=== PATIENT | female | born 1995 | race Caucasian/White ===

== ENCOUNTER 2017-10-30 16:10 | Emergency (ER) | payer BC ==
--- NOTE | 2017-10-30 16:18 | PDOC ---
Rapid Medical Evaluation Chief Complaint: Vaginal Sxs Time Seen by Provider: 10/30/17 16:15 Medical Evaluation: Allergies Allergy/AdvReac Type Severity Reaction Status Date / Time strawberry Allergy Hives Verified 02/27/16 21:10 10/30/17 16:16 ealthy 22 year old female with burning vaginal pain, rash, and vaginal discharge for several days. Noted a blister on vagina. -Pgu -UA/culture -Urine GC -Declines HIV test -To FT for further evaluation
[2017-10-30 16:19] VITALS: BP 122/68; PULSE 93; TEMP 97.9; BMI 21.8
[2017-10-30 16:45] LABS: URINE APPEARANCE SLCLOUDY; URINE BILIRUBIN NEGATIVE (NEGATIVE); URINE BLOOD 1+ (NEGATIVE); URINE COLOR YELLOW; URINE GLUCOSE (UA) NEGATIVE (NEGATIVE); URINE KETONE TRACE (NEGATIVE); URINE LEUK ESTERASE TRACE (NEGATIVE); URINE NITRITE POSITIVE (NEGATIVE); URINE PROTEIN NEGATIVE (NEGATIVE); URINE UROBILINOGEN 4.0 E.U/dl mg/dL (0.2-1.0)
[2017-10-30 16:47] LABS: HCG,QUALITATIVE URINE NEGATIVE
[2017-10-30] MEDS ORDERED: AZITHROMYCIN 1 GM PACKET PO ONE (17:25)
--- NOTE | 2017-10-30 17:29 | PDOC ---
History of Present Illness - General Chief Complaint: Vaginal Sxs Stated Complaint: BURNING SENSATION Time Seen by Provider: 10/30/17 16:15 History Source: Patient Exam Limitations: No Limitations - History of Present Illness Travel History: No Initial Comments: 10/30/17 17:21 22 yr female with c/o vaginal discharge and pain, burning to the vaginal area for 4 days. Pt is sexually active 2 partners the past 30 days. Timing/Duration: reports: constant Pain Radiation: reports: no radiation Past History - Past Medical History Allergies/Adverse Reactions: Allergies Allergy/AdvReac Type Severity Reaction Status Date / Time strawberry Allergy Hives Verified 10/30/17 16:19 Home Medications: Ambulatory Orders No Home Medications 0 dose .ROUTE UTDICT 03/07/14 Acyclovir [Zovirax -] 400 mg PO TID #30 tablet 10/30/17 Cephalexin [Keflex] 500 mg PO BID #6 capsule 10/30/17 metroNIDAZOLE [Flagyl -] 500 mg PO BID #14 tablet 10/30/17 Anemia: No Asthma: No Cancer: No Cardiac Disorders: No CVA: No COPD: No CHF: No Dementia: No Diabetes: No GI Disorders: No Disorders: No HTN: No Hypercholesterolemia: No Liver Disease: No Seizures: No Thyroid Disease: No Other medical history: denies - Surgical History Abdominal Surgery: Yes (hernia repair, LEAP SX) Appendectomy: No Cardiac Surgery: No Cholecystectomy: No Lung Surgery: No Neurologic Surgery: No Orthopedic Surgery: No - Immunization History Immunization Up to Date: No (no flu vaccine) - Suicide/Smoking/Psychosocial Hx Smoking Status: No Smoking History: Never smoked Have you smoked in the past 12 months: No Number of Cigarettes Smoked Daily: 3 Information on smoking cessation initiated: No Hx Alcohol Use: No Drug/Substance Use Hx: No Substance Use Type: None Hx Substance Use Treatment: No *Physical Exam - Vital Signs Last Vital Signs Temp Pulse Resp BP Pulse Ox 97.9 F 93 H 18 122/68 100 10/30/17 16:16 10/30/17 16:16 10/30/17 16:16 10/30/17 16:16 10/30/17 16:16 - Physical Exam General Appearance: Yes: Nourished, Appropriately Dressed HEENT: positive: EOMI, CATHERINE Respiratory/Chest: positive: Lungs Clear, Normal Breath Sounds Female Pelvic Exam: positive: normal adnexa, discharge (yellow/green ), other ( multiple lesions to the external vulva area, vesicular, reddened) Gastrointestinal/Abdominal: positive: Normal Bowel Sounds, Soft Musculoskeletal: positive: Normal Inspection Extremity: positive: Normal Capillary Refill, Normal Inspection, Normal Range of Motion ED Treatment Course - ADDITIONAL ORDERS Additional order review: Laboratory Results 10/30/17 16:30 Urine Color Yellow Urine Appearance Slcloudy Urine pH 6.0 Ur Specific [place] 1.014 Urine Protein Negative Urine Glucose (UA) Negative Urine Ketones Trace H Urine Blood 1+ H Urine Nitrite Positive Urine Bilirubin Negative Urine Urobilinogen 4.0 e.u/dl H Ur Leukocyte Esterase Trace Urine HCG, Qual Negative Medical Decision Making - Medical Decision Making 10/30/17 17:31 cc: vaginal discharge burning pain to the outside of vagina for 4 days exam consistent with herpes genitalia, vaginal discharge will send cultures will cover for STD herpes, will check HIV and RPR discussed in detail with the investigation division captain all questions asked and answered. 10/30/17 19:17 dc inst discussed in detail with the pt all questions asked and answered *DC/Admit/Observation/Transfer Diagnosis at time of Disposition: Genital herpes Qualifiers: Herpes simplex infection site: vulvovaginitis Qualified Code(s): A60.04 - Herpesviral vulvovaginitis Urinary tract infection Qualifiers: Urinary tract infection type: acute cystitis Hematuria presence: with hematuria Qualified Code(s): N30.01 - Acute cystitis with hematuria - Discharge Dispostion Disposition: HOME Condition at time of disposition: Good - Prescriptions Prescriptions: Acyclovir [Zovirax -] 400 mg PO TID #30 tablet Cephalexin [Keflex] 500 mg PO BID #6 capsule metroNIDAZOLE [Flagyl -] 500 mg PO BID #14 tablet - Referrals Referrals: Stiven Brar MD [Staff Physician] - - Patient Instructions Printed Discharge Instructions: The Facts About Genital Herpes, Genital Herpes Additional Instructions: take the medication as prescribed the Acyclovir is for the herpes outbreak the Keflex id for urine infection the Metro is for the bacterial vaginal infection coverage please have no sexual contact until your symptoms have improved always use condoms tell your partner he needs to be tested and treated follow with the polygraph examiner listed below in one week Return to ER for any worsening symptoms - Post Discharge Activity
[2017-10-30 17:48] LABS: EPI CELLS RARE /HPF (FEW); URINE BACTERIA MANY /hpf (NONE SEEN); URINE HYALINE CAST 2 /lpf; URINE MUCUS MODERATE
[2017-10-30] MEDS ORDERED: AZITHROMYCIN 500 MG TABLET ONE (17:48)
[2017-10-30] MEDS ORDERED: ONDANSETRON *ODT* 4 MG TABLET ONE (18:44)
[2017-10-30] MEDS ORDERED: ONDANSETRON *ODT* 4 MG TABLET SL ONE (19:19)
== END 2017-10-30 19:21 | disposition home or self-care (01) ==
LOC: JERFT 16:10
DX: N30.01 Acute cystitis with hematuria (principal); A60.04 Herpesviral vulvovaginitis
CPT/HCPCS: 36415; 81003; 81015; 84703; 86593; 87070; 87086; 87186; 87205; 87255; 87389; 87491; 87591; 99281-25; Q0162

== ENCOUNTER 2018-05-05 16:46 | Emergency (ER) | payer BC ==
--- NOTE | 2018-05-05 16:56 | PDOC ---
Rapid Medical Evaluation Chief Complaint: Pain Time Seen by Provider: 05/05/18 16:53 Medical Evaluation: Allergies Allergy/AdvReac Type Severity Reaction Status Date / Time strawberry Allergy Hives Verified 10/30/17 16:19 05/05/18 16:54 I have performed a brief in person evaluation of this patient. The patient presents with a CC of: Abd pain HPI: Pt is a 23 Yo female who has had abd pain x 1 week. Pt has one episode of vomiting. Pt has hx of constipation. Hx of hernia repair. LMP was last week. PE: Skin: Clear Heart: RRR Lungs: Clear Abd: patient has RLQ pain, no rebound tenderness. MS: Moves all extremities without difficulty Neuro: Appropriate affect Psych: appropriate affect I have ordered: Abd pain protocol The patient will proceed to the ED for further evaluation.
[2018-05-05 16:59] VITALS: BMI 22.2
[2018-05-05 17:33] LABS: BASO % 0.5 % (0-2.0); EOS % 1.6 % (0-4.5); HEMATOCRIT 37.6 % (32.4-45.2); HEMOGLOBIN 12.5 GM/dL (10.7-15.3); MCHC 33.2 g/dl (32.0-36.0); MEAN CELL VOLUME 93.3 fl (80-96); MEAN PLT VOLUME 8.3 fl (7.5-11.1); MONO % 7.2 % (3.8-10.2); NEUT % 65.7 % (42.8-82.8); PLATELET COUNT 250 K/MM3 (134-434); RBC 4.03 M/mm3 (3.60-5.2)
[2018-05-05 18:06] LABS: HCG,QUALITATIVE URINE Negative; URINE APPEARANCE CLEAR; URINE BILIRUBIN NEGATIVE (<2.0 mg/dL); URINE COLOR LTYELLOW; URINE GLUCOSE (UA) NEGATIVE (NEGATIVE); URINE KETONE NEGATIVE (NEGATIVE); URINE LEUK ESTERASE TRACE (NEGATIVE); URINE NITRITE NEGATIVE (NEGATIVE); URINE PROTEIN NEGATIVE (NEGATIVE); URINE UROBILINOGEN NEGATIVE mg/dL (0.2-1.0)
[2018-05-05 18:08] LABS: ALBUMIN 3.8 g/dl (3.4-5.0); ANION GAP 6 MMOL/L (8-16); BILIRUBIN,TOTAL 0.3 mg/dL (0.2-1); BLOOD UREA NITROGEN 11 mg/dL (7-18); CALCIUM 9.2 mg/dL (8.5-10.1); CHLORIDE 104 mmol/L (98-107); CO2 26 mmol/L (21-32); CREATININE 0.9 mg/dL (0.55-1.3); GLUCOSE,RANDOM 93 mg/dL (74-106); LIPASE 162 U/L (73-393); POTASSIUM 4.3 mmol/L (3.5-5.1); SGOT/AST 31 U/L (15-37); SGPT/ALT 39 U/L (13-61); SODIUM 136 mmol/L (136-145); TOT PROT 7.7 g/dl (6.4-8.2)
[2018-05-05 18:10] LABS: ALK PHOS 67 U/L (45-117)
--- NOTE | 2018-05-05 18:18 | PDOC ---
History of Present Illness - General Chief Complaint: Pain Stated Complaint: ABD PAIN Time Seen by Provider: 05/05/18 16:53 History Source: Patient Exam Limitations: No Limitations - History of Present Illness Initial Comments: 05/05/18 18:07 Patient is a 23F with history of constipation, ovarian cyst, r inguinal hernia here today complaining of one week of RLQ abdominal pain. Patient reports anorexia and one episode of vomiting. Denies fevers, chills. Denies dysuria. LMP one week ago. Endorses odorous vaginal discharge. Currently monogamous with boyfriend, not using protection. Has history of herpes. Patient has OBGYN at [facility], Dr Vanegas. Denies blood in vomit. Past History - Past Medical History Allergies/Adverse Reactions: Allergies Allergy/AdvReac Type Severity Reaction Status Date / Time strawberry Allergy Hives Verified 05/05/18 16:54 Home Medications: Ambulatory Orders Doxycycline Hyclate 100 mg PO BID #28 tablet 05/05/18 Valacyclovir HCl [Valtrex -] 500 mg PO DAILY 05/05/18 Anemia: No Asthma: No Cancer: No Cardiac Disorders: No CVA: No COPD: No CHF: No Dementia: No Diabetes: No GI Disorders: No Disorders: No HTN: No Hypercholesterolemia: No Liver Disease: No Seizures: No Thyroid Disease: No - Surgical History Abdominal Surgery: Yes (hernia repair, LEAP SX) Appendectomy: No Cardiac Surgery: No Cholecystectomy: No Lung Surgery: No Neurologic Surgery: No Orthopedic Surgery: No - Immunization History Immunization Up to Date: No (no flu vaccine) - Suicide/Smoking/Psychosocial Hx Smoking Status: No Smoking History: Never smoked Have you smoked in the past 12 months: No Number of Cigarettes Smoked Daily: 3 Hx Alcohol Use: No Drug/Substance Use Hx: No Substance Use Type: None Hx Substance Use Treatment: No Review of Systems - Review of Systems Able to Perform ROS?: Yes Comments:: 05/05/18 18:18 GENERAL/CONSTITUTIONAL: No fever or chills. No weakness. HEAD, EYES, EARS, NOSE AND THROAT: No change in vision. No ear pain or discharge. No sore throat. CARDIOVASCULAR: No chest pain or shortness of breath RESPIRATORY: No cough, wheezing, or hemoptysis. GASTROINTESTINAL: +nausea, +vomiting, no diarrhea +constipation. GENITOURINARY: No dysuria, frequency, or change in urination. MUSCULOSKELETAL: No joint or muscle swelling or pain. No neck or back pain. SKIN: No rash NEUROLOGIC: No headache, vertigo, loss of consciousness, or change in strength/ sensation. ENDOCRINE: No increased thirst. No abnormal weight change HEMATOLOGIC/LYMPHATIC: No anemia, easy bleeding, or history of blood clots. ALLERGIC/IMMUNOLOGIC: No hives or skin allergy. *Physical Exam - Vital Signs Last Vital Signs Temp Pulse Resp BP Pulse Ox 98.5 F 97 H 16 109/82 99 05/05/18 16:54 05/05/18 16:54 05/05/18 16:54 05/05/18 16:54 05/05/18 16:54 - Physical Exam Comments: 05/05/18 18:19 GENERAL: Awake, alert, and fully oriented, in no acute distress PELVIC: +r adnexal and +cmt, small amount of white discharge, closed cervical os , no blood, normal external genitalia HEAD: No signs of trauma, normocephalic, atraumatic EYES: PERRLA, EOMI, sclera anicteric, conjunctiva clear ENT: Auricles normal inspection, hearing grossly normal, nares patent, oropharynx clear without exudates. Moist mucosa NECK: Normal ROM, supple, no lymphadenopathy, JVD, or masses LUNGS: No distress, speaks full sentences, clear to auscultation bilaterally HEART: Regular rate and rhythm, normal S1 and S2, no murmurs, rubs or gallops, peripheral pulses normal and equal bilaterally. ABDOMEN: Soft, +rlq tenderness, normoactive bowel sounds. No guarding, no rebound. No masses EXTREMITIES: Normal inspection, Normal range of motion, no edema. No clubbing or cyanosis. NEUROLOGICAL: Cranial nerves II through XII grossly intact. Normal speech, normal gait, no focal sensorimotor deficits SKIN: Warm, Dry, normal turgor, no rashes or lesions noted. ED Treatment Course - LABORATORY CBC & Chemistry Diagram: 05/05/18 17:18 05/05/18 17:18 - ADDITIONAL ORDERS Additional order review: Laboratory Results 05/05/18 17:49 Urine HCG, Qual Negative 05/05/18 17:18 RBC 4.03 MCV 93.3 MCHC 33.2 RDW 14.0 MPV 8.3 Neutrophils % 65.7 D Lymphocytes % 25.0 Monocytes % 7.2 Eosinophils % 1.6 Basophils % 0.5 - RADIOLOGY Radiology Studies Ordered: Category Date Time Status ABDOMEN & PELVIS CT WITH CONTR [CT] Stat CT Scan 05/05/18 17:55 Ordered Medical Decision Making - Medical Decision Making 05/05/18 18:20 Patient is 23F with history of constipation, ovarian cyst, herpes, R inguinal hernia here today with RLQ pain, +cmt, +r adenxal tenderness. Vitals normal and stable. Will evaluate with abdominal labs, upreg, ct abd/pelvis. Likely PID, doing CT to r/o appy. Patient refused STD testing. 05/05/18 20:57 CBC normal. CMP reassuring. UA negative. CT abd/pelvis shows leiomyoma, no other acute pathology. Patient advised of results, feeling better. Will treat for PID. Patient advised about PID being caused by STIs. Will treat for PID. Patient instructed to follow up with OBGYN. Patient expressed understanding. *DC/Admit/Observation/Transfer Diagnosis at time of Disposition: PID (acute pelvic inflammatory disease) - Discharge Dispostion Disposition: HOME Condition at time of disposition: Good Decision to Admit order: No - Prescriptions Prescriptions: Doxycycline Hyclate 100 mg PO BID #28 tablet - Referrals - Patient Instructions Printed Discharge Instructions: DI for Pelvic Inflammatory Disease Additional Instructions: Please call your OBGYN doctor tomorrow to follow up regarding your PID and fibroid. Please return if you have any new, worsening or concerning symptoms. - Post Discharge Activity
[2018-05-05 18:22] LABS: EPI CELLS RARE /HPF (FEW); URINE MUCUS RARE
--- NOTE | 2018-05-05 19:13 | PDOC ---
Attending Attestation - Resident Resident Name: RolandoSantiago chaudhry - ED Attending Attestation I have performed the following: I have examined & evaluated the patient, The case was reviewed & discussed with the resident, I agree w/resident's findings & plan, Exceptions are as noted - HPI HPI: 05/05/18 19:13 23 F with h/o constipation, ovarian cysts, r inguinal hernia repair, presents to ED with RLQ pain. Had one episode of NBNB vomiting. Denies F/C. Denies diarrhea/constipation. Endorses foul smelling vaginal discharge. No dysuria. No flank pain. - Physicial Exam PE: 05/05/18 19:14 "GENERAL: Awake, alert, and fully oriented, in no acute distress. HEAD: No signs of trauma EYES: PERRLA, EOMI, sclera anicteric, conjunctiva clear ENT: Auricles normal inspection, hearing grossly normal, nares patent, oropharynx clear without exudates. Moist mucosa NECK: Nontender, no stepoffs, Normal ROM, supple, no lymphadenopathy, JVD, or masses LUNGS: Breath sounds equal, clear to auscultation bilaterally. No wheezes, and no crackles HEART: Regular rate and rhythm, normal S1 and S2, no murmurs, rubs or gallops ABDOMEN: + RLQ TTP, no masses : + CMT, no adnexal masses EXTREMITIES: Normal range of motion, no edema. No clubbing or cyanosis. No cords, erythema, or tenderness NEUROLOGICAL: Cranial nerves II through XII intact. 5/5 strength and sensation in all extremities, Normal speech, normal gait, normal cerebellar function SKIN: Warm, Dry, normal turgor, no rashes or lesions noted." - Medical Decision Making 05/05/18 19:15 23 F with RLQ pain and foul smelling vaginal discharge, found to have +CMT on exam. Likely PID. Will r/o TOA and appy with CT scan. Pt refusing STD testing. - Labs, UA - CTAP CT with likely leiomyoma, pt informed of result and understands need to f/u with timber management professor. Per radiology read, contiguous ovarian pathology is unlikely. Tx'ed for PID. Pt is well appearing, with normal vitals. Clinically stable for DC at this time. I discussed the physical exam findings, ancillary test results and final diagnoses with the patient. I answered all of the patient's questions. The patient was satisfied with the care received and felt comfortable with the discharge plan and treatment plan. The patient agrees to follow up with the primary care physician within 24-72 hours.
[2018-05-05] MEDS ORDERED: IBUPROFEN 600 MG TABLET (FP) PO ONE ×2 (19:58→19:59)
[2018-05-05] MEDS ORDERED: DOXYCYCLINE HYCLATE 100 MG CAPSULE PO ONE ×2 (20:56→21:37)
[2018-05-05] MEDS ORDERED: LIDOCAINE HCL 1%, 10 MG/ML (50 mL VIAL) INF ONE (21:35)
[2018-05-05] MEDS ORDERED: cefTRIAXone SODIUM 1 GM VIAL ONE (21:37)
[2018-05-05 21:51] VITALS: BP 112/76; PULSE 72; TEMP 98.1
== END 2018-05-05 21:44 | disposition home or self-care (01) ==
LOC: JER 16:46
DX: N73.9 Female pelvic inflammatory disease, unspecified (principal); Z86.19 Personal history of other infectious and parasitic diseases; Z87.19 Personal history of other diseases of the digestive system
CPT/HCPCS: 36415; 74177-TC; 80053; 81003; 81015; 83690; 84703; 85025; 99284-25